=== PATIENT | male | born 2000 | race Caucasian/White ===

== ENCOUNTER 2023-06-25 13:52 | Emergency (ER) | payer MEDICAID, SELFPAY ==
--- NOTE | 2023-06-25 13:45 | RT.EKG_ITS ---
APPROVED REPORT Exam: Resting ECG Reason for Exam: chest pain Patient Location: E HR:78 bpm ECG Measurements Heart Rate 78 AXIS AR 132 P 62 QRSd 95 QRS 51 QT 406 T 58 QTc 454 Conclusion Sinus rhythm..V-rate 60- [address] segment or T wave abnormalities to suggest occlusive [place]
[2023-06-25 13:55] VITALS: PULSE 69; RESP 18; TEMP 36.6; O2SAT 99
--- NOTE | 2023-06-25 15:00 | DI.RAD_ITS ---
Exam(s) XR CHEST 2V PA LATERAL EXAM: XR CHEST 2V PA LATERAL CLINICAL HISTORY: chest pain. TECHNIQUE: 2D digital imaging was performed. COMPARISON: No exams were available for comparison FINDINGS: 2 views: Heart size is normal. The mediastinum is not widened. Lungs are clear. No infiltrates nor pleural effusions. IMPRESSION: No acute pulmonary findings. DATA REPOSITORY: RADIATION DOSE DELIVERED:
--- NOTE | 2023-06-25 15:00 | ED.GENADUL_ITS ---
Discharge Plan Disposition Patient Disposition: Home Condition: Good Discharge Details Clinical Impression: Chest pain of uncertain etiology Primary Care Provider: Salma,Local ED Provider: Noy Ly Home Meds and New Rx's Prescriptions: No Action No Known Home Meds Discharge Instructions Instructions: Chest Pain (ED) Additional Instructions: YOu can take tylenol and ibuprofen over the counter for your symptoms. Please stop vaping. Call your primary care doctor on Tuesday and schedule an appointment to follow up on your visit today. Return to the emergency department for new or worsening symptoms, including new/different/worse chest pain, difficutly breathing, or if you have any other concerns. Discharge Data Discharge Date/Time-TO BE ENTERED AT DEPARTURE: 06/25/23 16:22 Medical Decision Making 23yo male presenting with constant substernal chest pain x 8 hours. Vital signs and physical exam reassuring, mild reproducible pain with twisting and with palpation of sternum. Extensive prior cardiac workup negative per patient. Low suspicion for primary cardiac or pulmonary pathology (suspect [facility]). EKG NSR, appropriate intervals, no ischemic changes. CBC & CMP reassuring with no actionable abnormalities. Troponin negative; in the setting of 8 hours of constant pain will not get delta. CXR indpenently reviewed, no acute findings, agree with radiology read. Offered IM toradol which patient declined. Discharged home; discharge instructions including return precautions were reviewed with patient who verbalized understanding. Alll questions were answered and they are in full agreement with the plan. Imaging Data Radiologic Study: Imaging: X-Ray Radiologist's impression: IMPRESSION: No acute pulmonary findings. Lab Data Lab results reviewed: Yes I reviewed the patient's lab results. Labs: Laboratory Tests Range/Units 06/25/23 06/25/23 15:15 15:15 WBC (4.4-10.8) 10^3/uL 5.73 RBC (4.36-5.78) 10^6/uL 5.00 Hgb (13.5-17.5) g/dL 14.9 Hct (40.0-50.0) % 42.7 MCV (80-95) fL 85 MCH (27.0-33.0) pg 29.8 MCHC (32.0-36.0) % 34.9 RDW (11.8-14.1) % 11.4 L Plt Count (130-400) 10^3/uL 238 MPV (8.0-11.0) fL 9.8 Immature Gran % 0.2 Neutrophils % 53.1 Lymphocytes % 34.2 Monocytes % 9.6 Eosinophils % 2.6 Basophils % 0.3 Nucleated RBC % (0.0-0.3) % 0.0 Absolute Neutrophils (1.2-6.7) 10^3/uL 3.04 Absolute Lymphocytes (1.2-3.4) 10^3/uL 1.96 Absolute Monocytes (0.1-0.8) 10^3/uL 0.55 Absolute Eosinophils (0.0-0.7) 10^3/uL 0.15 Absolute Basophils (0.0-0.2) 10^3/uL 0.02 Sodium (136-145) mmol/L 141 Potassium (3.5-5.1) mmol/L 4.0 Chloride (98-107) mmol/L 104 Carbon Dioxide (21.0-32.0) mmol/L 30.0 Anion Gap (3-11) mmol/L 7.0 BUN (7-18) mg/dL 17 Creatinine (0.70-1.30) mg/dL 1.0 Est GFR (CKD-EPI 2020) (mL/min/1.73m2) 109.81 Glucose (74-106) mg/dL 90 Calcium (8.5-10.1) mg/dL 8.8 Total Bilirubin (0.2-1.0) mg/dL 0.5 AST (15-37) U/L 22 ALT (16-63) U/L 48 Alkaline Phosphatase (46-116) U/L 68 Troponin I (<or=60) ng/L < 50 Total Protein (6.4-8.2) g/dL 7.5 Albumin (3.4-5.0) g/dL 3.9 HPI General Mode of arrival: ambulatory . Date/Time Provider Initiated Documentation: 06/25/23 15:00 . Limitations to Documentation: no limitations . Information obtained by: patient . HPI Narrative: 23yo male presenting with substernal chest pain, constant since this morning. Worse with movement, particularly twisting. He does not recall any injury or trauma to the area. Had chest pain a few years ago, not sure if this is similar, reports hospital admission, extensive work, Holter monitor, with no cardiac etiology identified. Symptoms at that time attributed to vaping which he stopped; has recently restarted. Does not recall any trauma to the area; did go swimming yesterday which he does not do typically. No fevers, chills, rash, shortness of breath, palpitations, back pain, syncope, nausea, vomiting, abdominal pain, or other concerns. Related Data Home Medications Medication Instructions Recorded Confirmed Unknown [No Known Home Meds] 06/25/23 06/25/23 Allergies Allergy/AdvReac Type Severity Reaction Status Date / Time No Known Allergies Allergy Unverified 06/25/23 13:57 General Stated Complaint: Chest Pain JASON: 3 Review of Systems Narrative: see HPI PFSH All Active Problems (Updated 06/25/23 @ 15:59 by Noy Ly MD) Chest pain of uncertain etiology (Acute) Social History Smoking/Tobacco Use Status: Current every day Tobacco Type: e-cigarettes Smoking risk assessment performed?: Yes Alcohol Intake: current Alcohol Intake frequency: holidays/special occasions only Alcohol type: beer Drug use: Daily Substance use type: marijuana Housing: apartment Do you feel safe at home: Yes Do you feel safe in your relationship?: Yes Exam Narrative Exam Narrative: General: Alert, well appearing, well nourished, in no acute distress. Head: Normocephalic, atraumatic Neck: Trachea midline, Neck supple. ENT: MMM. No oropharygeal lesions or exudate. Chest: Mildly TTP of sternum and left chest. Cardiac: RRR, no murmurs appreciated Resp: No respiratory distress. CTAB. Abd: Soft, non-distended, nontender : No suprapubic tenderness. No CVA tenderness. Extremities: No deformities. No peripheral edema. Neurologic: GCS 15. Moves all extremities freely against gravity Course Vital Signs Vital signs: Vital Signs Temperature 36.6 C 06/25/23 13:55 Pulse 69 06/25/23 13:55 Respiratory Rate 18 06/25/23 13:55 Pulse Oximetry 99 06/25/23 13:55 Temperature 36.6 C 06/25/23 13:55 Temperature Source Oral 06/25/23 13:55 Pulse 69 06/25/23 13:55 Respiratory Rate 18 06/25/23 13:55 Respiratory Effort Normal, Non-Labored 06/25/23 13:58 Pulse Oximetry 99 06/25/23 13:55 Oxygen Delivery Method Room Air 06/25/23 13:55 Oxygen Flow Rate 0 06/25/23 13:55 Pain Level 7 06/25/23 13:55
[2023-06-25 15:21] LABS: Abs Immature Grans 0.01 10^3/uL (0.0-0.06); Absolute Basophil Count 0.02 10^3/uL (0.0-0.2); Absolute Eosinophil Count 0.15 10^3/uL (0.0-0.7); Absolute Lymphocyte Count 1.96 10^3/uL (1.2-3.4); Absolute Monocyte Count 0.55 10^3/uL (0.1-0.8); Absolute Neutrophil Count 3.04 10^3/uL (1.2-6.7); Basophils % 0.3; Eosinophils % 2.6; HCT 42.7 % (40.0-50.0); HGB 14.9 g/dL (13.5-17.5); Immature Grans % 0.2; Lymphocytes % 34.2; MCH 29.8 pg (27.0-33.0); MCHC 34.9 % (32.0-36.0); MCV 85 fL (80-95); MPV 9.8 fL (8.0-11.0); Monocytes % 9.6; Neutrophils % 53.1; Platelet Count 238 10^3/uL (130-400); RDW 11.4 % (11.8-14.1); RDW-SD 35.3 fL; WBC 5.73 10^3/uL (4.4-10.8)
[2023-06-25 15:38] LABS: ALT 48 U/L (16-63); AST 22 U/L (15-37); Albumin 3.9 g/dL (3.4-5.0); Alkaline Phosphatase 68 U/L (46-116); BUN 17 mg/dL (7-18); Bilirubin, Total 0.5 mg/dL (0.2-1.0); Calcium 8.8 mg/dL (8.5-10.1); Chloride 104 mmol/L (98-107); Estimated GFR 109.81 (mL/min/1.73m2); Glucose 90 mg/dL (74-106); Sodium 141 mmol/L (136-145); Total Protein 7.5 g/dL (6.4-8.2); Troponin I < 50 ng/L (<or=60)
--- NOTE | 2023-06-25 16:09 | DI.VRAD_ITS ---
PROCEDURE INFORMATION: Exam: XR Chest Exam date and time: 06/25/2023 3:41 PM Age: 23 years old Clinical indication: Other: Chest pain TECHNIQUE: Imaging protocol: Radiologic exam of the chest. Views: 2 views. COMPARISON: No relevant prior studies available. FINDINGS: Lungs: Unremarkable. No consolidation. Pleural spaces: Unremarkable. No pleural effusion. No pneumothorax. Heart/Mediastinum: Unremarkable. No cardiomegaly. Bones/joints: Unremarkable. IMPRESSION: No evidence for acute abnormality in the chest. Dictated and Authenticated by: Margaret Guajardo MD. Ordering:KAYLIN Villafuerte MD
== END 2023-06-25 16:22 | disposition home or self-care (01) ==
PROVIDERS: Emergency Provider Student in an Organized Health Care Education/Training Program
DX: R07.9 Chest pain, unspecified (principal); F17.290 Nicotine dependence, other tobacco product, uncomplicated
CPT/HCPCS: 80053; 93005; 99284; 71046; 84484; 85025; 93010; 99283